=== PATIENT | male | born 1995 | race Two or more races ===

== ENCOUNTER 2016-08-03 00:41 | Emergency (ER) | payer OTHER ==
[2016-08-03] MEDS ORDERED: LIDOCAINE 1% INJ-PF (10 MG/ML) 30 ML SDV INJ ONE (01:12)
[2016-08-03] MEDS ORDERED: DIPH/PERTUSS(ACELL)/TETANUS VAC/PF 0.5 ML SYR (>=10YO) IM ONE (01:13)
[2016-08-03] MEDS ORDERED: FENTANYL CITRATE INJ/PF 100 MCG/2 ML AMPUL IV ONE (01:14)
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
[2016-08-03] MEDS ORDERED: HYDROCODONE/ACETAMINOPHEN 5-325 MG 6 TAB/DSPK PO PRN (03:55)
[2016-08-03 04:06] VITALS: BP 114/73
== END 2016-08-03 04:15 | disposition home or self-care (01) ==
LOC: ER 00:41
DX: S02.2XXA Fracture of nasal bones, initial encounter for closed fracture (principal); S02.40EA Zygomatic fracture, right side, initial encounter for closed fracture; S01.511A Laceration without foreign body of lip, initial encounter; S20.212A Contusion of left front wall of thorax, initial encounter; Y04.2XXA Assault by strike against or bumped into by another person, initial encounter; R51 Headache; M54.2 Cervicalgia
CPT/HCPCS: 99284; 90471; 96374; 70450; 70486; 72125; 90715; 12011; J3010; J3490

== ENCOUNTER 2019-09-30 13:12 | Emergency (ER) | payer SELFPAY ==
[2019-09-30] MEDS ORDERED: KETOROLAC TROMETHAMINE INJ/PF 30 MG/1 ML SDV IV ONE (13:43)
--- NOTE | 2019-09-30 13:50 | ER Document Report ---
ED General <SONU CANDELARIO M - Last Filed: 09/30/19 15:50> - General Mode of Arrival: Ambulatory Information source: Patient TRAVEL OUTSIDE OF THE [place] IN LAST 30 DAYS: No <STEFANCHEPE - Last Filed: 10/01/19 07:21> - General Chief Complaint: Fever Stated Complaint: SORE THROAT/FEVER Time Seen by Provider: 09/30/19 13:24 Notes: This 24-year-old male patient comes emergency room complaining of onset yesterday of sore throat, gland swelling, headache, body aches, nasal congestion, occasional cough. He is noticed that his urine has been dark but feels he has not been drinking enough fluids. He states he lost his sense of taste. He reports a fever that is up and down but the highest reported was 100.1. He has also felt lightheaded. 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 (CHEPE AVILES) - Related Data Allergies/Adverse Reactions: melon Allergy (Verified 09/30/19 13:37) Past Medical History - General Information source: Patient - Social History Smoking Status: Current Every Day Smoker Cigarette use (# per day): Yes - 1 PPD Chew tobacco use (# tins/day): No Smoking Education Provided: No Frequency of alcohol use: Occasional Drug Abuse: None Occupation: care process manager of [employer] Family History: Reviewed & Not Pertinent Patient has homicidal ideation: No Renal/ Medical History: Reports: Hx Kidney Stones Surgical Hx: Negative - Immunizations Hx Diphtheria, Pertussis, Tetanus Vaccination: No <CHEPE AVILES - Last Filed: 10/01/19 07:21> Review of Systems - Review of Systems EENT: See HPI Cardiovascular: No symptoms reported Respiratory: See HPI Gastrointestinal: No symptoms reported Genitourinary: See HPI Musculoskeletal: See HPI Skin: No symptoms reported Hematologic/Lymphatic: No symptoms reported Neurological/Psychological: No symptoms reported <CHEPE AVILES - Last Filed: 10/01/19 07:21> Physical Exam - Vital signs Interpretation: Normal - General General appearance: Appears well, Alert In distress: None - HEENT Head: Normocephalic, Atraumatic Eyes: Normal Pupils: PERRL Nasal: Normal Mouth/Lips: Normal Pharynx: Erythema. No: Exudate, Uvular edema Neck: Anterior cervical chain - Respiratory Respiratory status: No respiratory distress Breath sounds: Normal - Cardiovascular Rhythm: Regular Heart sounds: Normal auscultation Murmur: No - Abdominal Inspection: Normal Bowel sounds: Normal Tenderness: Nontender - Back Back: Normal - Neurological Neuro grossly intact: Yes - Psychological Associated symptoms: Normal affect, Normal mood - Skin Skin Temperature: Warm Skin Moisture: Dry Skin Color: Normal <CHEPE AVILES - Last Filed: 10/01/19 07:21> - Vital signs Vitals: Temp Pulse Resp BP Pulse Ox 98.8 F 101 H 18 126/76 H 98 09/30/19 13:30 09/30/19 13:30 09/30/19 13:30 09/30/19 13:30 09/30/19 13:30 Course - Laboratory Result Diagrams: 09/30/19 14:27 09/30/19 14:27 <SONU CANDELARIO - Last Filed: 09/30/19 15:50> - Laboratory Result Diagrams: 09/30/19 14:27 09/30/19 14:27 - Diagnostic Test Radiology reviewed: Image reviewed - Chest x-ray is unremarkable. - Transfer of Care Care transferred to following provider: Dr. Candelario <CHEPE AVILES - Last Filed: 10/01/19 07:21> - Re-evaluation Re-evalutation: 09/30/19 15:51 Care of this patient was turned over to me during the course of my shift. In short this patient has sore throat, low-grade fevers, very minimal cough. Laboratory investigations were obtained. He does have a positive strep screen. His chest x-ray is unremarkable, his vital signs are unremarkable. I discussed this with the patient. He will be treated as an outpatient with penicillin. He is to follow-up with primary care next week, Tylenol or ibuprofen as needed for fever and pain, return to the ER with worsening or new concerning symptoms of any sort. (SONU CANDELARIO) - Vital Signs Vital signs: Temp Pulse Resp BP Pulse Ox 98.9 F 97 16 128/80 H 98 09/30/19 16:05 09/30/19 16:05 09/30/19 16:05 09/30/19 16:09/30/19 16:05 - Laboratory Laboratory results interpreted by me: 09/30/19 09/30/19 09/30/19 14:27 14:27 14:27 WBC 16.5 H Lymph % (Auto) 6.8 L Absolute Neuts (auto) 13.7 H Seg Neutrophils % 82.9 H Sodium 136.3 L BUN 6 L Urine Blood LARGE H - Transfer of Care Notes: 09/30/19 14:43 Pending IV fluid hydration, labs to include CBC, Chem-12, d-dimer, urinalysis, rapid strep. (CHEPE AVILES) Discharge <SONU CANDELARIO - Last Filed: 09/30/19 15:50> <CHEPE AVILES - Last Filed: 10/01/19 07:21> - Discharge Clinical Impression: Sore throat, Nasal congestion, Cough, Streptococcal pharyngitis Fever Qualifiers: Fever type: unspecified Qualified Code(s): R50.9 - Fever, unspecified Headache Qualifiers: Headache type: unspecified Headache chronicity pattern: unspecified pattern Intractability: not intractable Qualified Code(s): R51 - Headache Condition: Stable Disposition: HOME, SELF-CARE Instructions: Fever ([facility]), Strep Throat ([facility]) Additional Instructions: Take penicillin as directed until it is gone. Tylenol or ibuprofen as needed for pain, fever. Follow-up with primary care next week. Return to the ER with worsening or new concerning symptoms of any sort. Prescriptions: Penicillin V Potassium [Penicillin Vk 500 mg Tablet] 500 mg PO BID #20 tablet
[2019-09-30] MEDS: NORMAL SALINE 1000 ML 1,000 ML IV PRN ×2 (14:20→15:28)
--- NOTE | 2019-09-30 14:23 | RADIOLOGY REPORT (SQ) ---
EXAM DESCRIPTION: CHEST SINGLE VIEW IMAGES COMPLETED DATE/TIME: 09/30/2019 2:13 pm REASON FOR STUDY: fever, cough COMPARISON: None. EXAM PARAMETERS: NUMBER OF VIEWS: One view. TECHNIQUE: Single frontal radiographic view of the chest acquired. RADIATION DOSE: NA LIMITATIONS: None. FINDINGS: LUNGS AND PLEURA: No opacities, masses or pneumothorax. No pleural effusion. MEDIASTINUM AND HILAR STRUCTURES: No masses. Contour normal. HEART AND VASCULAR STRUCTURES: Heart normal in size. Normal vasculature. BONES: No acute findings. HARDWARE: None in the chest. OTHER: No other significant finding. IMPRESSION: No focal airspace disease. No pleural effusion or pneumothorax. TECHNICAL DOCUMENTATION: JOB ID: [id number] 2010 [employer]- All Rights Reserved Reading location - IP/workstation name: [email or web address]
[2019-09-30 14:46] LABS: ABSOLUTE EOSINOPHILS # (AUTO) 0.3 10^3/uL (0.0-0.6); ABSOLUTE LYMPHOCYTES (AUTO) 1.1 10^3/uL (0.5-4.7); ABSOLUTE MONOCYTES (AUTO) 1.4 10^3/uL (0.1-1.4); ABSOLUTE NEUT (AUTO) 13.7 10^3/uL (1.7-8.2); BASOPHILS % (AUTO) 0.2 % (0-2); EOSINOPHILS % (AUTO) 1.8 % (0-6); HEMATOCRIT 43.1 % (37.9-51.0); HEMOGLOBIN 14.8 g/dL (13.5-17.0); LYMPHOCYTES % (AUTO) 6.8 % (13-45); MEAN CORPUSCULAR HEMOGLOBIN 30.4 pg (27.0-33.4); MEAN CORPUSCULAR HGB CONC 34.3 g/dL (32.0-36.0); MEAN CORPUSCULAR VOLUME 89 fl (80-97); MONOCYTES % (AUTO) 8.3 % (3-13); PLATELET COUNT 271 10^3/uL (150-450); RED BLOOD COUNT 4.86 10^6/uL (4.35-5.55); RED CELL DISTRIBUTION WIDTH 13.4 % (11.5-14.0); SEGMENTED NEUTROPHILS % (AUTO) 82.9 % (42-78); TOTAL CELLS COUNTED % (AUTO) 100 %; WHITE BLOOD COUNT 16.5 10^3/uL (4.0-10.5)
[2019-09-30 14:50] LABS: APPEARANCE,URINE CLEAR; BILIRUBIN,URINE NEGATIVE (NEGATIVE); COLOR,URINE YELLOW; GLUCOSE, URINE NEGATIVE (NEGATIVE); KETONES,URINE NEGATIVE (NEGATIVE); LEUKOCYTE ESTERASE,URINE NEGATIVE (NEGATIVE); NITRITE,URINE NEGATIVE (NEGATIVE); PROTEIN,URINE NEGATIVE (NEGATIVE); URINE SPECIFIC GRAVITY 1.023; UROBILINOGEN,URINE NEGATIVE mg/dL (<2.0)
[2019-09-30 15:03] LABS: ALBUMIN 4.3 g/dL (3.5-5.0); ALKALINE PHOSPHATASE 63 U/L (38-126); ANION GAP 7 (5-19); ASPARTATE AMINO TRANSFERASE 25 U/L (17-59); BILIRUBIN,TOTAL 0.8 mg/dL (0.2-1.3); BLOOD UREA NITROGEN 6 mg/dL (7-20); CALCIUM 9.4 mg/dL (8.4-10.2); CARBON DIOXIDE 28 mmol/L (22-30); CHLORIDE 101 mmol/L (98-107); CREATINE KINASE 96 U/L (55-170); GLUCOSE 107 mg/dL (75-110); POTASSIUM 4.2 mmol/L (3.6-5.0); TOTAL PROTEIN 7.1 g/dL (6.3-8.2)
[2019-09-30 16:06] VITALS: BP 128/80
== END 2019-09-30 16:06 | disposition home or self-care (01) ==
LOC: ER 13:12
DX: J02.0 Streptococcal pharyngitis (principal); R50.9 Fever, unspecified; R09.81 Nasal congestion; R05 Cough; R51 Headache; R59.0 Localized enlarged lymph nodes; M79.10 Myalgia, unspecified site; R42 Dizziness and giddiness; Z88.8 Allergy status to other drugs, medicaments and biological substances; F17.210 Nicotine dependence, cigarettes, uncomplicated
CPT/HCPCS: 99283; 96361; 96374; 36415; 87880; 82550; 85025; 80053; 81001; 85379; 71045; J1885; J7030

== ENCOUNTER 2020-03-24 12:30 | Emergency (ER) | payer OTHER ==
[2020-03-24 12:36] VITALS: BP 147/84
--- NOTE | 2020-03-24 12:45 | ER Document Report ---
HPI - HPI Patient complains to provider of: Urinary frequency Time Seen by Provider: 03/24/20 12:38 Onset: Last week Onset/Duration: Persistent Pain Level: Denies Context: Patient presents complaining of urinary frequency. Patient denies any discharge or dysuria. Patient denies any fever. Patient denies any abdominal pain or back pain. Patient denies any increased thirst or appetite. Associated Symptoms: Other - Urinary frequency. denies: Fever, Nausea, Vomiting Exacerbated by: Denies Relieved by: Denies Similar symptoms previously: No Recently seen / treated by doctor: No - ROS ROS below otherwise negative: Yes Systems Reviewed and Negative: Yes All other systems reviewed and negative - CONSTITUTIONAL Constitutional: DENIES: Fever, Chills - GASTROINTESTINAL Gastrointestinal: DENIES: Abdominal Pain, Nausea - URINARY Urinary: REPORTS: Frequency. DENIES: Urgency - MUSCULOSKELETAL Musculoskeletal: DENIES: Back Pain - DERM Skin Color: Normal Skin Problems: None Past Medical History - General Information source: Patient - Social History Smoking Status: Current Some Day Smoker Chew tobacco use (# tins/day): No Frequency of alcohol use: None Drug Abuse: None Occupation: [employer] Family History: Reviewed & Not Pertinent Patient has homicidal ideation: No - Medical History Medical History: Negative Renal/ Medical History: Reports: Hx Kidney Stones Surgical Hx: Negative - Immunizations Hx Diphtheria, Pertussis, Tetanus Vaccination: No Vertical Provider Document - CONSTITUTIONAL Agree With Documented VS: Yes Exam Limitations: No Limitations General Appearance: WD/WN, No Apparent Distress - INFECTION CONTROL TRAVEL OUTSIDE OF THE [place] IN LAST 30 DAYS: No - HEENT HEENT: Atraumatic, Normocephalic - NECK Neck: Normal Inspection, Supple - RESPIRATORY Respiratory: Breath Sounds Normal, No Respiratory Distress - CARDIOVASCULAR Cardiovascular: Regular Rate, Regular Rhythm, No Murmur - GI/ABDOMEN Gastrointestinal: Abdomen Soft - BACK Back: Normal Inspection. negative: CVA Tenderness-Right, CVA Tenderness-Left - MUSCULOSKELETAL/EXTREMETIES Musculoskeletal/Extremeties: LUISANA FERRARI - NEURO Level of Consciousness: Awake, Alert, Appropriate Motor/Sensory: No Motor Deficit - DERM Integumentary: Warm, Dry Course - Re-evaluation Re-evalutation: 03/24/20 13:52 Patient presents complaining of urinary frequency for the past week. Patient does have some hematuria although no evidence of any infection at this time. Patient denies any penile discharge. Patient advised that he would be STD tested and empirically treated given his presentation. Patient advised of hematuria noted on urinalysis, culture will be obtained. Patient encouraged to follow-up with urology for any persistent problems. - Vital Signs Vital signs: Temp Pulse Resp BP Pulse Ox 98.1 F 97 16 147/84 H 96 03/24/20 12:39 03/24/20 12:35 03/24/20 12:35 03/24/20 12:35 03/24/20 12:35 - Laboratory Laboratory results interpreted by me: 03/24/20 13:52 Labs- All tests 24 hr 03/24/20 03/24/20 12:58 13:05 POC Glucose 124 H Urine Color YELLOW Urine Appearance CLEAR Urine pH 5.0 Ur Specific [place] 1.020 Urine Protein NEGATIVE Urine Glucose (UA) NEGATIVE Urine Ketones NEGATIVE Urine Blood MODERATE H Urine Nitrite NEGATIVE Urine Bilirubin NEGATIVE Urine Urobilinogen NEGATIVE Ur Leukocyte Esterase NEGATIVE Urine WBC (Auto) 0 Urine RBC (Auto) 1 Urine Mucus (Auto) RARE Urine Ascorbic Acid NEGATIVE Discharge - Discharge Clinical Impression: Urinary frequency Condition: Stable Disposition: HOME, SELF-CARE Instructions: Azithromycin ([facility]), Metronidazole ([facility]), Rocephin ([facility]) Additional Instructions: Return immediately for any new or worsening symptoms Followup with your primary care provider, call tomorrow to make a followup appointment Cultures are pending, we will call if you need any different treatment. Your urine did have blood in it, follow-up with a urologist for further evaluation of this finding. Forms: Return to Work Referrals: [facility] [Provider Group] - Follow up as needed
[2020-03-24 13:34] LABS: APPEARANCE,URINE CLEAR; BILIRUBIN,URINE NEGATIVE (NEGATIVE); COLOR,URINE YELLOW; GLUCOSE, URINE NEGATIVE (NEGATIVE); KETONES,URINE NEGATIVE (NEGATIVE); LEUKOCYTE ESTERASE,URINE NEGATIVE (NEGATIVE); NITRITE,URINE NEGATIVE (NEGATIVE); PROTEIN,URINE NEGATIVE (NEGATIVE); UROBILINOGEN,URINE NEGATIVE mg/dL (<2.0)
[2020-03-24] MEDS ORDERED: LIDOCAINE 1% INJ (10 MG/ML) 10 ML MDV INJ ONE (13:50)
[2020-03-24] MEDS ORDERED: AZITHROMYCIN 250 MG TABLET PO ONE (13:50)
[2020-03-24] MEDS ORDERED: CEFTRIAXONE INJ 250 MG VIAL IM ONE (13:50)
[2020-03-24] MEDS ORDERED: METRONIDAZOLE 500 MG TABLET PO ONE (13:51)
[2020-03-24 14:57] LABS: CHLAM PCR NOT DETECTED (NOT DETECT)
== END 2020-03-24 14:12 | disposition home or self-care (01) ==
LOC: ER 12:30
DX: R35.0 Frequency of micturition (principal); R31.9 Hematuria, unspecified; F17.200 Nicotine dependence, unspecified, uncomplicated; Z87.442 Personal history of urinary calculi
CPT/HCPCS: 99284; 96372; 87086; 82962; 81001; 87491; 87591; J0696